=== PATIENT | female | born 1955 | race Caucasian/White ===

== ENCOUNTER → 2016-12-18 | Outpatient (CLI) | payer MEDICARE ==
[2016-11-15 19:19] VITALS: BP 125/76
[~2016-12-18] MED LIST: AMLO2.5T2 PO; AMOX875T PO; ASPI-482 PO; BUSP15TA PO; DICL75TA PO; HYDR50CA2 PO; IBUP800T PO; LISI1TAB5 PO; MULT-246 PO; NAPR500T3 PO; PARO20TA3 PO; TRAZ100T12 PO
--- NOTE | 2016-12-19 11:04 | RAD ---
EXAM: MAMMO SUMMER DIAG LT HISTORY: Follow-up of small nodule of left breast COMPARISON: 06/20/2016 Standard mammographic views are obtained of the left breast This study was interpreted with the benefit of Computerized Aided Detection (CAD). FINDINGS: The breast parenchyma shows scattered fibroglandular densities. Breast parenchyma level II. There is no major change in previously identified superficial nodular density within the left inferior medial breast. IMPRESSION: No major change from prior examination. BI-RADS CATEGORY: 3 PROBABLE BENIGN-SHORT TERM F/U RECOMMENDED FOLLOW-UP: 6M 6 MONTH FOLLOW-UP PQRS compliance statement: Patient information was entered into a reminder system with a target due date for the next mammogram. Mammography is a sensitive method for finding small breast cancers, but it does not detect them all and is not a substitute for careful clinical examination. A negative mammogram does not negate a clinically suspicious finding and should not result in delay in biopsying a clinically suspicious abnormality. "Our facility is accredited by the [employer] Mammography [employer]."
== END | disposition home or self-care (01) ==
LOC: MAMMO 10:48
PROVIDERS: ATTEND Physician Assistant Medical
DX: R92.8 Other abnormal and inconclusive findings on diagnostic imaging of breast (principal); N63 Unspecified lump in breast
CPT/HCPCS: G0206; G0279; 77061; 77065

== ENCOUNTER → 2017-06-29 | Outpatient (CLI) | payer MEDICARE, MEDICAID ==
[2016-11-15 19:19] VITALS: BP 125/76
[~2017-06-29] MED LIST changes: -IBUP800T PO; +IBUP800T19 PO; +TRAZ-90 PO; -TRAZ100T12 PO
--- NOTE | 2017-06-29 16:13 | RAD ---
DATE: 06/29/2017 EXAM: MAMMO SUMMER JANIE LAINEZ, BREAST LEFT HISTORY: Follow-up nodule COMPARISON: 06/20/2016, 12/18/2016 This study was interpreted with the benefit of Computerized Aided Detection (CAD). The breast parenchyma shows scattered fibroglandular densities. Breast parenchyma level B. FINDINGS: 2-D and 3-D tomosynthesis imaging was performed in CC and MLO projections. On the previous study a small smooth superficial nodule was noted inferior medially in the left breast. There are now 3 small rounded superficial nodules in the inferior aspect of the left breast at the 6-7 o'clock locations. The largest of these measures 6 mm. The other 2 nodules each measure approximately 3 mm. These are best seen on CC tomogram image #4. One of these probably corresponds to the nodule seen on the previous study. No other new or enlarging breast densities are seen. Benign type calcifications are present. No suspicious microcalcifications are seen. Left breast ultrasound, 06/29/2017: A targeted ultrasound exam of the left breast was performed inferomedially. At the 6:00 location approximately 3 cm from the nipple there is a 2 mm small hypoechoic structure, similar to that seen on the 06/27/2016 exam. There are low level internal echoes. This is probably a tiny complicated cyst. Also at the 6:00 location there is a separate small nodule measuring approximately 4 mm in diameter which appears to contain a small cystic component as well as an adjacent hyperechoic component. Some of its margins are smooth while others are slightly ill-defined. There are several other small focal hyperechoic areas seen at the 7:00 location approximately 2 cm from the nipple. These demonstrate echogenicity greater than that of the adjacent subcutaneous fat. Their margins are somewhat hazy. This is not the typical appearance of malignancy. Some of the smaller hyperechoic foci appear to have been present in retrospect on the previous ultrasound study. IMPRESSION: There are now 3 small tiny superficial nodules at the 6-7 o'clock location in the left breast, having increased in number since the 12/18/2016 exam at which time only 1 nodule was present. Sonographic evaluation of that region demonstrate a probable complicated cyst, a partially cystic nodule as well as several small hyperechoic foci. Fibrocystic disease and/or fat necrosis is suspected. These are not the typical findings of malignancy. Further mammographic and sonographic surveillance is suggested. BI-RADS CATEGORY: 3 PROBABLY BENIGN FINDING(S)-SHORT INTERVAL FOLLOW-UP SUGGESTED RECOMMENDED FOLLOW-UP: 6M 6 MONTH FOLLOW-UP PQRS compliance statement: Patient information was entered into a reminder system with a target due date for the next mammogram. Mammography is a sensitive method for finding small breast cancers, but it does not detect them all and is not a substitute for careful clinical examination. A negative mammogram does not negate a clinically suspicious finding and should not result in delay in biopsying a clinically suspicious abnormality. "Our facility is accredited by the [employer] Mammography [employer]."
== END | disposition home or self-care (01) ==
LOC: MAMMO 13:21
PROVIDERS: ATTEND Physician Assistant Medical
DX: N63 Unspecified lump in breast (principal)
CPT/HCPCS: 76641; G0204; G0279; 77062; 77066

== ENCOUNTER → 2018-08-05 | Outpatient (CLI) | payer MEDICARE, MEDICAID ==
[2016-11-15 19:19] VITALS: BP 125/76
[~2018-08-05] MED LIST changes: +NAPR-514 PO; -NAPR500T3 PO; +TRAZ-86 PO; -TRAZ-90 PO
--- NOTE | 2018-08-06 12:39 | RAD ---
DATE: 08/05/2018 EXAM: MAMMO SUMMER SCREENING BILATERAL HISTORY: Follow-up breast nodules COMPARISON: 07/19/2017, 06/29/2017, 12/18/2016, 06/20/2016 This study was interpreted with the benefit of Computerized Aided Detection (CAD). Breast Density: SCATTERED The breast parenchyma shows scattered fibroglandular densities. Breast parenchyma level B. FINDINGS: 2-D and 3-D tomosynthesis imaging was performed in CC and MLO projections. On the 06/29/2017 study there were 3 small nodules in the inferior aspect of the left breast at the 6-7 o'clock locations. 2 of these have resolved. There is one residual tiny 3 mm nodule as seen on CC summer image #4. It appears unchanged on the previous exams dating back to a 06/20/2016. No new or enlarging breast densities are seen. Benign type calcifications are evident. No suspicious microcalcifications have developed. Benign-appearing lymph node are noted in the axillary regions. IMPRESSION: 1. Unchanged small inferomedial left breast nodule. Its stability since 06/20/2016 suggests a benign etiology. 2. No mammographic evidence of malignancy in either breast. BI-RADS CATEGORY: 2 BENIGN FINDING(S) RECOMMENDED FOLLOW-UP: 12M 12 MONTH FOLLOW-UP PQRS compliance statement: Patient information was entered into a reminder system with a target due date for the next mammogram. Mammography is a sensitive method for finding small breast cancers, but it does not detect them all and is not a substitute for careful clinical examination. A negative mammogram does not negate a clinically suspicious finding and should not result in delay in biopsying a clinically suspicious abnormality. "Our facility is accredited by the [employer] Mammography [employer]."
== END | disposition home or self-care (01) ==
LOC: MAMMO 13:34
PROVIDERS: ATTEND Physician Assistant Medical
DX: Z12.31 Encounter for screening mammogram for malignant neoplasm of breast (principal); N63.24 Unspecified lump in the left breast, lower inner quadrant
CPT/HCPCS: 77063; 77066; 77067